=== PATIENT | male | born 1965 | race Caucasian/White ===

== ENCOUNTER 2019-06-19 11:47 | Emergency (ER) | payer OTHER ==
[~2019-06-19] VITALS: Ht 177.8 cm; Wt 75.6 kg
--- NOTE | 2019-06-19 11:56 | NUR ---
PT AMBULATORY WITH STEADY GAIT TO ROOM FROM LOBBY. CHANGING INTO GOWN.
--- NOTE | 2019-06-19 12:04 | NUR ---
THIS IS A 54 YR OLD MALE WHO CAME FROM . C/O BILATERAL INQUINAL HERNIAS. PT STHEY WERE ABLE TO REDUCE THEM WHEN LAYING DOWN. PT STATES THE PAIN IS SO BAD IT HAS KEPT HIM FROM EATING AND DRINKING IT HURTS TO URINATE AND HAVE A BOWEL MOVEMENT. PT IS IN GOWN WITH NIBP AND O2 MONITORING IN PLACE.
[2019-06-19] MEDS ORDERED: ONDANSETRON 2MG/ML, 2ML IVPush ONE (12:30)
[2019-06-19] MEDS ORDERED: HYDROmorphone 2 MG/ML, 1ML IVPush PRN (12:30)
[2019-06-19] MEDS ORDERED: SODIUM CHLORIDE FLUSH 10ML SYR IVF ONE (12:30)
[2019-06-19] MEDS ORDERED: HYDROmorphone 1 MG/ML, 1ML INJ ONE (12:31)
[2019-06-19] MEDS ORDERED: ONDANSETRON 2MG/ML, 2ML ONE (12:31)
--- NOTE | 2019-06-19 12:41 | NUR ---
PT MEDICATED PER EMAR. US FINISHED AT BEDSIDE. PT RESTING ON GURNEY. NADN. VSS. DENIES FURTHER NEEDS.
[2019-06-19 12:52] LABS: BASOPHILS # (AUTO) 0.06 x10^3/uL (0-0.1); BASOPHILS % (AUTO) 1 % (0-1); EOSINOPHILS # (AUTO) 0.05 x10^3/uL (0-0.4); EOSINOPHILS % (AUTO) 0 % (1-7); LYMPHOCYTES # (AUTO) 1.53 x10^3/uL (1-3.4); LYMPHOCYTES % (AUTO) 13 % (22-44); MD NO; MEAN CORPUSCULAR HEMOGLOBIN 31.7 pg (27.5-34.5); MEAN CORPUSCULAR HGB CONC 34.1 g/dL (33.2-36.2); MEAN CORPUSCULAR VOLUME 93.1 fL (81-97); MEAN PLATELET VOLUME 7.8 fL (7.4-10.4); MONOCYTES # (AUTO) 0.52 x10^3/uL (0.2-0.8); MONOCYTES % (AUTO) 5 % (2-9); NEUTROPHILS # (AUTO) 9.43 x10^3/uL (1.8-6.8); NEUTROPHILS % (AUTO) 81 % (42-75); PLATELET COUNT 260 x10^3/uL (130-400); RED BLOOD COUNT 4.97 x10^6/uL (4.38-5.82); RED CELL DISTRIBUTION WIDTH 12.8 % (9.4-14.8)
[2019-06-19 12:56] LABS: ALBUMIN 3.6 g/dL (3.4-5.0); ANION GAP 7 mmol/L (5-15); CALCIUM 8.7 mg/dL (8.5-10.1); CHLORIDE 110 mmol/L (98-107)
[2019-06-19 13:01] LABS: ALANINE AMINOTRANSFERASE 29 U/L (12-78); ALKALINE PHOSPHATASE 66 U/L (45-117); BILIRUBIN,TOTAL 0.7 mg/dL (0.2-1.0); CREATININE 1.31 mg/dL (0.7-1.3); TOTAL PROTEIN 6.8 g/dL (6.4-8.2)
--- NOTE | 2019-06-19 13:03 | NUR ---
PT AMBULATORY WITH STEADY GAIT TO AND FROM RADIOLOGY. ABLE TO PROVIDE URINE SAMPLE. URINE COLLECTED. PT NOW RESTING ON GURNEY. EKG BEING DONE NOW.
[2019-06-19 13:25] LABS: MICROSCOPIC NOT IND
--- NOTE | 2019-06-19 13:30 | NUR ---
REPORT GIVEN TO DIMPLE WEBBER.
--- NOTE | 2019-06-19 13:31 | NUR ---
Report from Jessie MUSA. Pt resting in bed, reports pain improved but not resolved. Pt denies other needs.
[2019-06-19 13:32] VITALS: BP 112/75
[2019-06-19 13:35] LABS: CULTURE INDICATED? NO
--- NOTE | 2019-06-19 15:00 | NUR ---
TASK RN: PT NOT DISCHARGED BY THIS RN. PT HAD QUESTIONS ABOUT A HERNIA BELT/TRUSS THAT DR JEAN HAD DISCUSSED WITH PT. THIS RN DISCUSSED WITH DR JEAN. RX WRITTEN AND EXAMPLES FROM INTERNET PROVIDED TO PT. PT VERBALIZED UNDERSTANDING ABOUT HERNIA BELT. PT HAS DISHARGE PAPERWORK AND WAS ON HOLD FOR FOLLOW UP APPT.
== END 2019-06-19 15:05 | disposition home or self-care (01) ==
LOC: ED 14:00
DX: K40.91 Unilateral inguinal hernia, without obstruction or gangrene, recurrent (principal)
CPT/HCPCS: 36415; 74021; 76857; 80053; 81003; 85025; 93005; 96374; 96375; 99284; J1170; J2405